=== PATIENT | female | born 1940 | race Two or more races ===

== ENCOUNTER 2025-01-22 13:09 | Observation (INO) | payer OTHER ==
[2025-01-22 14:00] VITALS: BMI 28.2
[2025-01-22] MEDS: SODIUM CHLORIDE 0.9% 500 ML INFUS.BAG IV ONE (14:56)
[2025-01-22 15:14] LABS: ABSOLUTE IMMATURE GRANULOCYTES 0.04 x10^3/uL (0.0-0.031); BASOPHILS # 0.05 x10^3/uL (0.01-0.08); EOSINOPHIL % 0.1 % (0.7-5.8); EOSINOPHILS # 0.01 x10^3/uL (0.04-0.36); MCHC 31.7 g/dl (32.2-35.5); MEAN CELL VOLUME 86.0 fl (79.4-94.8); MEAN PLT VOLUME 8.2 fl (9.4-12.3); MONOCYTE # 0.71 x10^3/uL (0.24-0.86); MONOCYTE % 7.0 % (4.7-12.5); RDW 16.6 % (12.5-17.0)
[2025-01-22 15:22] LABS: INR 1.06 (0.83-1.09); PROTHROMBIN TIME (PATIENT) 11.7 SEC (9.7-13.0)
[2025-01-22 15:25] LABS: ACTIVATED PTT 26.5 SECONDS (25.2-36.5)
[2025-01-22 15:50] LABS: CO2 25.0 mmol/L (21-32); GLUCOSE,RANDOM 89.0 mg/dL (74-106)
[2025-01-22 15:53] LABS: CREATININE 0.7 mg/dL (0.55-1.3); SGOT/AST 7.0 U/L (15-37); SGPT/ALT 15.0 U/L (13-61)
[2025-01-22 15:55] LABS: TOT PROT 6.2 g/dl (6.4-8.2)
[2025-01-22 15:56] LABS: ALK PHOS 77.0 U/L (45-117)
[2025-01-22] MEDS ORDERED: ROSUVASTATIN CA 5 MG TABLET ONE (21:33)
[2025-01-22] MEDS: ROSUVASTATIN CA 5 MG TABLET PO SCH (21:49)
[2025-01-22 22:02] LABS: EPI CELLS 6 /uL (0-25.1); HYALINE CASTS 0 /uL (0-3.1); URINE APPEARANCE CLEAR; URINE BACTERIA 17 /uL (0-1359); URINE BILIRUBIN NEGATIVE (NEGATIVE); URINE COLOR YELLOW; URINE GLUCOSE (UA) NEGATIVE (NEGATIVE); URINE KETONE NEGATIVE (NEGATIVE); URINE LEUK ESTERASE TRACE (NEGATIVE); URINE NITRITE NEGATIVE (NEGATIVE); URINE PROTEIN NEGATIVE (NEGATIVE); URINE RBC 16 /uL (0-23.9); URINE UROBILINOGEN 0.2 mg/dL (0.2-1.0); URINE WBC 9 /uL (0-25.8)
[2025-01-23 08:01] LABS: ABSOLUTE IMMATURE GRANULOCYTES 0.01 x10^3/uL (0.0-0.031); BASOPHILS # 0.04 x10^3/uL (0.01-0.08); EOSINOPHIL % 1.2 % (0.7-5.8); EOSINOPHILS # 0.08 x10^3/uL (0.04-0.36); MCHC 31.9 g/dl (32.2-35.5); MEAN CELL VOLUME 84.8 fl (79.4-94.8); MEAN PLT VOLUME 8.5 fl (9.4-12.3); MONOCYTE # 0.60 x10^3/uL (0.24-0.86); MONOCYTE % 9.1 % (4.7-12.5); RDW 16.4 % (12.5-17.0)
[2025-01-23 08:07] VITALS: RESP 20
[2025-01-23 08:28] LABS: CO2 23.0 mmol/L (21-32); GLUCOSE,RANDOM 87.0 mg/dL (74-106)
[2025-01-23 08:31] LABS: CREATININE 0.5 mg/dL (0.55-1.3); SGPT/ALT 13.0 U/L (13-61)
[2025-01-23 08:32] LABS: SGOT/AST 11.0 U/L (15-37)
[2025-01-23 08:33] LABS: TOT PROT 5.7 g/dl (6.4-8.2)
[2025-01-23 08:34] LABS: ALK PHOS 71.0 U/L (45-117)
[2025-01-23] MEDS ORDERED: PANTOPRAZOLE 40 MG TABLET PO ONE (08:57)
[2025-01-23] MEDS ORDERED: LOSARTAN POTASSIUM 50 MG TABLET ONE (08:57)
[2025-01-23] MEDS ORDERED: ENOXAPARIN NA (PORCINE) 40 MG/0.4 ML DISP.SYRIN SQ ONE ×2 (08:58)
[2025-01-23] MEDS: PANTOPRAZOLE 40 MG TABLET PO SCH (09:07)
[2025-01-23] MEDS: LOSARTAN POTASSIUM 50 MG TABLET PO SCH (09:07)
[2025-01-23] MEDS: ENOXAPARIN NA (PORCINE) 40 MG/0.4 ML DISP.SYRIN SQ SCH (09:07)
[2025-01-23] MEDS ORDERED: PATIENT'S OWN MEDICATION (NON-FORMULARY) (Olmesartan Medoxomil [Benicar] 20 MG Tablet) PO SCH (10:00)
[2025-01-23 10:32] VITALS: BP 134/74; PULSE 82; TEMP 98.2
== END 2025-01-23 10:30 | disposition home or self-care (01) ==
LOC: JER 13:09 → JERBED 16:22
PROVIDERS: ADMIT Student in an Organized Health Care Education/Training Program; ATTEND Nurse Practitioner Family
PROC: 3E023GC Introduction of Other Therapeutic Substance into Muscle, Percutaneous Approach (ICD-10-PCS; principal; 2025-01-22)
PROC: 3E0337Z Introduction of Electrolytic and Water Balance Substance into Peripheral Vein, Percutaneous Approach (ICD-10-PCS; 2025-01-22)
DX: R55 Syncope and collapse (principal); I95.9 Hypotension, unspecified; I10 Essential (primary) hypertension; Z85.89 Personal history of malignant neoplasm of other organs and systems; E78.5 Hyperlipidemia, unspecified
CPT/HCPCS: 36415; 71045-TC-FY; 80053; 81003; 83735; 84100; 84443; 84484; 85025; 85610; 85730; 86850; 86900; 86901; 93005; 93010; 93308; 96372; 99285-25; G0378